=== PATIENT | male | born 1935 | race Caucasian/White ===

== ENCOUNTER 2019-08-02 09:57 | Day surgery (SDC) | payer MEDICARE ==
[~2019-08-02] VITALS: Ht 180.3 cm; Wt 99.8 kg
[~2019-08-02 09:57] MED LIST: KETOROLAC TROME0.4 % OU; PRED FORTE1 % OP
[2019-08-02 12:34] VITALS: BP 141/81
== END 2019-08-02 12:53 | disposition home or self-care (01) ==
LOC: ENDO 09:57
PROVIDERS: ATTEND Internal Medicine Gastroenterology
PROC: 0DBN8ZX Excision of Sigmoid Colon, Via Natural or Artificial Opening Endoscopic, Diagnostic (ICD-10-PCS; principal; 2019-08-02)
DX: Z12.11 Encounter for screening for malignant neoplasm of colon (principal); D12.5 Benign neoplasm of sigmoid colon; D17.5 Benign lipomatous neoplasm of intra-abdominal organs; K64.4 Residual hemorrhoidal skin tags; K64.8 Other hemorrhoids; Z86.010 Personal history of colon polyps